=== PATIENT | male | born 1955 | race Caucasian/White ===

== ENCOUNTER 2016-10-14 03:17 | Emergency (ER) | payer OTHER ==
[~2016-10-14] VITALS: Ht 175.3 cm; Wt 76.1 kg
[2016-10-14] MEDS ORDERED: AMLODIPINE-BEN1 EACH PO (04:08)
[2016-10-14] MEDS ORDERED: ULTRAM50 MG PO (04:16)
[2016-10-14] MEDS ORDERED: PREDNISONE10 MG PO (04:16)
[2016-10-14 04:28] VITALS: BP 179/100
== END 2016-10-14 04:29 | disposition home or self-care (01) ==
LOC: EXP 03:17 → EME 03:17 → EXP 04:29
DX: M25.562 Pain in left knee (principal); I10 Essential (primary) hypertension; F17.200 Nicotine dependence, unspecified, uncomplicated
CPT/HCPCS: 73564; 99281; 99284; J1885; J7512